=== PATIENT | female | born 1945 | race Caucasian/White ===

== ENCOUNTER → 2020-11-23 12:34 | Outpatient (CLI) | payer MEDICARE, SELFPAY ==
--- NOTE | 2020-11-23 12:46 | CA_ITS ---
APPROVED REPORT Right Lower Extremity Venous Study for DVT. Direct Marketing Coordinator: Nancy Jimenez RVT Indications Lower Extremity Pain: Right C/O RT CALF PAIN X 1 WEEK,NKI Vein Imaging CFV (R): compressive, spontaneous, phasic, augmentation FEM (R): compressive, spontaneous, phasic, augmentation POP (R): compressive, spontaneous, phasic, augmentation PTV (R): Compressible GSV (R): Compressible Peroneals (R):Compressible GAS (R): Compressible Findings Study suggests no evidence of DVT of the right lower extremity. Study suggests no evidence of SVT of the right lower extremity. Conclusion Study suggests no evidence of DVT of the right lower extremity. Study suggests no evidence of SVT of the right lower extremity. Critical Notification Physician Notified Date: 11/23/2020 Time: 13:09 Electronically signed by : Crispin Nino MD 11/23/2020 17:41:18
== END ==
PROVIDERS: PCP Family Medicine; Visit Provider Family Medicine
DX: M79.604 Pain in right leg (principal)
CPT/HCPCS: 93971

== ENCOUNTER → 2022-03-21 10:34 | Outpatient (CLI) | payer MEDICARE, SELFPAY ==
--- NOTE | 2022-03-21 10:39 | XR_ITS ---
FINAL REPORT CLINICAL HISTORY: mass on bottom of foot, pain and burning FINDINGS: RIGHT FOOT Three views of the left foot demonstrate no acute fracture or dislocation. The visualized joint spaces are normally aligned. There is a soft tissue prominence along the plantar surface of the 1st MTP joint. There is no bone destruction or focal bony lesion. IMPRESSION: Soft tissue prominence along the plantar surface of the 1st MTP joint with no acute bony abnormality. Reviewed, Interpreted and Dictated by Leanna Noonan MD Transcribed by Mayte Machuca Authenticated and [facility]
== END ==
PROVIDERS: PCP Nurse Practitioner Family; Visit Provider Podiatrist
DX: M79.672 Pain in left foot (principal)
CPT/HCPCS: 73630

== ENCOUNTER → 2022-04-12 12:38 | Outpatient (CLI) | payer MEDICARE, SELFPAY ==
--- NOTE | 2022-04-12 13:07 | MR_ITS ---
FINAL REPORT CLINICAL HISTORY: SOFT TISSUE MASS PLANTAR SIDE OF FOOT, HEAD OF 1ST METATARSAL FINDINGS: Multiplanar MR imaging of the left foot was performed without contrast. Mild degenerative changes are present. The bony structures are intact without evidence of fracture, bone bruise or marrow edema. The flexor and extensor tendons are intact. No ligamentous injury is identified. The musculature is intact. The plantar aponeurosis is intact. There is a cystic mass in the plantar medial forefoot deep to the 1st metatarsal head measuring 27 x 10 x 17 mm, may represent a ganglion or other cyst. IMPRESSION: Mass in the plantar medial forefoot as detailed above. Reviewed, Interpreted and Dictated by Jose Francisco Laureano III, MD Transcribed by Dianna Stone Authenticated and [facility]
[2022-04-12 13:15] LABS: Blood Urea Nitrogen 12 mg/dl (7-17); Estimated Glomerular Filt Rate 97 ml/min (>60); GFR (African American) 117 ML/MIN (>60)
== END ==
PROVIDERS: PCP Nurse Practitioner Family; Visit Provider Podiatrist
DX: M67.472 Ganglion, left ankle and foot (principal); M79.89 Other specified soft tissue disorders; M79.672 Pain in left foot
CPT/HCPCS: 36415; 73718; 82565; 84520

== ENCOUNTER → 2022-04-18 12:56 | Outpatient (CLI) | payer MEDICARE, SELFPAY | PROVIDERS: Visit Provider Podiatrist | DX: M67.472 Ganglion, left ankle and foot (principal) | CPT/HCPCS: 87070; 87205 ==